=== PATIENT | female | born 1990 | race Hispanic/Latino ===

== ENCOUNTER 2017-03-10 18:31 | Inpatient (IN) | payer MEDICAID ==
[~2017-03-10 18:31] MED LIST: IBUP-2070 PO; PREN1TAB80 PO
[2017-03-10] MEDS ORDERED: LACTATED RINGERS 1000ML 1,000 ML IV PRN (20:07)
[2017-03-10] MEDS ORDERED: AMPICILLIN 2GM+NS 100ML 100 ML IV SCH (20:30)
[2017-03-10 21:01] LABS: HEMATOCRIT 35.1 % (36-48); MEAN CORPUSCULAR HEMOGLOBIN 25.7 pg (27.0-33.0); MEAN CORPUSCULAR HGB CONC 33.1 g/dL (32.0-36.0); MEAN CORPUSCULAR VOLUME 77.6 fL (79-99); PLATELET COUNT (AUTO) 241 K/uL (130-400); RED BLOOD CELL COUNT(AUTO) 4.52 MIL/uL (4.00-5.50); RED CELL DISTRIBUTION WIDTH 16.7 % (11.0-15.5)
[2017-03-11] VITALS (7 sets, daily range): BP systolic 109–133; BP diastolic 61–87
[2017-03-11] MEDS: AMPICILLIN 1GM+NS 50ML 50 ML IV SCH ×3 (00:15→08:30)
[2017-03-11 07:01] LABS: APPEARANCE,URINE CLEAR (CLEAR); BILIRUBIN,URINE NEGATIVE (NEGATIVE); COLOR,URINE YELLOW (YELLOW); GLUCOSE, URINE (UA) NEGATIVE (NEGATIVE); KETONES,URINE NEGATIVE (NEGATIVE); LEUKOCYTE ESTERASE ,URINE NEGATIVE (NEGATIVE); NITRATE,URINE NEGATIVE (NEGATIVE); OCCULT BLOOD,URINE NEGATIVE (NEGATIVE); PH,URINE 7.5 (5.0-8.0); PROTEIN,URINE TRACE (NEGATIVE); UROBILINOGEN,URINE 0.2 mg/dL (0.2-1.0)
[2017-03-11] MEDS ORDERED: OXYTOCIN 10 USP UNITS/ML 20 UNIT in LACTATED RINGERS 1000ML 1,000 ML IV SCH (07:30)
[2017-03-11] MEDS ORDERED: LACTATED RINGERS 1000ML 1,000 ML IV ONE (07:32)
[2017-03-11] MEDS ORDERED: OXYTOCIN 10 USP UNITS/ML ONE ×2 (07:33→14:25)
[2017-03-11] MEDS ORDERED: PROMETHAZINE HCL 25 MG/ML 1ML AMPULE IM ONE (09:42)
[2017-03-11] MEDS ORDERED: MEPERIDINE-PF 50 MG/ML SYG ONE (09:43)
[2017-03-11] MEDS: PROMETHAZINE HCL 25 MG/ML 1ML AMPULE IM SCH (09:45)
[2017-03-11] MEDS: MEPERIDINE-PF 50 MG/ML SYG IVP SCH (09:45)
[2017-03-11] MEDS ORDERED: PNV71COM PO (10:40)
[2017-03-11] MEDS ORDERED: LANOLIN 30GM OINTMENT TP PRN (11:15)
[2017-03-11] MEDS ORDERED: ACETAMINOPHEN 325 MG TAB PO PRN (11:15)
[2017-03-11] MEDS ORDERED: WITCH HAZEL 1 PAD TP PRN (11:15)
[2017-03-11] MEDS ORDERED: DIPH,PERTUSS(ACELL),TET VAC/PF 0.5 ML VIAL IM PRN (11:15)
[2017-03-11] MEDS ORDERED: BENZOCAINE/LANOLIN/ALOE VERA 60 ML AEROSOL TP PRN (11:15)
[2017-03-11] MEDS: IBUPROFEN 600 MG TABLET PO PRN ×2 (11:17→18:51)
[2017-03-11] MEDS: ACETAMINOPHEN-CODEINE 300/30MG TAB PO PRN (16:17)
[2017-03-11] MEDS: FLU VACC QS2017-18 36MOS UP/PF 60 MCG/0.5 ML ML IM SCH (18:52)
[2017-03-11] MEDS: DOCUSATE SODIUM 100 MG CAP PO SCH (20:48)
[2017-03-12 03:16] VITALS: BP 121/73
[2017-03-12 05:47] LABS: HEMATOCRIT 32.6 % (36-48); MEAN CORPUSCULAR HEMOGLOBIN 26.5 pg (27.0-33.0); MEAN CORPUSCULAR HGB CONC 33.6 g/dL (32.0-36.0); PLATELET COUNT (AUTO) 208 K/uL (130-400); RED BLOOD CELL COUNT(AUTO) 4.12 MIL/uL (4.00-5.50); RED CELL DISTRIBUTION WIDTH 16.6 % (11.0-15.5); WHITE BLOOD COUNT (AUTO) 11.9 K/uL (4.8-10.8)
[2017-03-12] MEDS: IBUPROFEN 600 MG TABLET PO PRN ×3 (05:51→17:43)
[2017-03-12 07:23] LABS: HEPATITIS Bs ANTIGEN SCREEN P Negative (Negative)
[2017-03-12 07:30] VITALS: BP 124/74
[2017-03-12] MEDS: DOCUSATE SODIUM 100 MG CAP PO SCH ×2 (09:27→20:40)
[2017-03-12] MEDS: PROMETHAZINE HCL 25 MG/ML 1ML AMPULE IM SCH (09:45)
[2017-03-12] MEDS: MEPERIDINE-PF 50 MG/ML SYG IVP SCH (09:45)
[2017-03-12 12:21] VITALS: BP 136/83
[2017-03-12 15:25] VITALS: BP 136/87
[2017-03-12] MEDS: FLU VACC QS2017-18 36MOS UP/PF 60 MCG/0.5 ML ML IM SCH (18:30)
[2017-03-12 19:36] VITALS: BP 117/74
[2017-03-12] MEDS: ACETAMINOPHEN-CODEINE 300/30MG TAB PO PRN (20:40)
[2017-03-12 23:30] VITALS: BP 126/82
[2017-03-13 03:42] VITALS: BP 115/73
[2017-03-13] MEDS: IBUPROFEN 600 MG TABLET PO PRN ×3 (06:00→12:24)
[2017-03-13 07:34] VITALS: BP 139/94
[2017-03-13] MEDS: DOCUSATE SODIUM 100 MG CAP PO SCH (09:05)
[2017-03-13] MEDS: ACETAMINOPHEN-CODEINE 300/30MG TAB PO PRN (09:07)
[2017-03-13] MEDS: MEPERIDINE-PF 50 MG/ML SYG IVP SCH (09:45)
[2017-03-13] MEDS: PROMETHAZINE HCL 25 MG/ML 1ML AMPULE IM SCH (09:45)
[2017-03-13 11:18] VITALS: BP 137/94
== END 2017-03-13 13:25 | disposition home or self-care (01) | DRG 560 ==
LOC: LDH 18:31 → WSH 03-11 10:20
PROVIDERS: ADMIT Obstetrics & Gynecology; ATTEND Obstetrics & Gynecology
PROC: 10E0XZZ Delivery of Products of Conception, External Approach (ICD-10-PCS; principal; 2017-03-10)
PROC: 3E0234Z Introduction of Serum, Toxoid and Vaccine into Muscle, Percutaneous Approach (ICD-10-PCS; 2017-03-10)
DX: O99.824 Streptococcus B carrier state complicating childbirth (principal); Z23 Encounter for immunization; Z37.0 Single live birth; Z3A.38 38 weeks gestation of pregnancy
CPT/HCPCS: 36415; 81003; 82120; 85027; 86592; 86850; 86900; 86901; 87340; 90715; G0378; J0290; J2175; J2550; J2590; J7120; Q2038

== ENCOUNTER → 2017-05-10 | Outpatient (CLI) | payer MEDICAID ==
[~2017-05-10] VITALS: Ht 163.8 cm; Wt 97.5 kg
[~2017-05-10] MED LIST changes: -IBUP-2070 PO; +PNV71COM PO; -PREN1TAB80 PO
[2017-05-10 12:19] LABS: BASOPHILS % (AUTO) 0.3 % (0.0-5.0); HEMATOCRIT 41.1 % (36-48); LYMPHOCYTES % (AUTO) 25.7 % (21.0-51.0); MEAN CORPUSCULAR HEMOGLOBIN 26.1 pg (27.0-33.0); MEAN CORPUSCULAR HGB CONC 33.3 g/dL (32.0-36.0); MEAN CORPUSCULAR VOLUME 78.3 fL (79-99); MONOCYTES % (AUTO) 5.3 % (3.0-13.0); NEUTROPHILS % (AUTO) 66.7 % (40.0-77.0); PLATELET COUNT (AUTO) 289 K/uL (130-400); RED BLOOD CELL COUNT(AUTO) 5.25 MIL/uL (4.00-5.50); RED CELL DISTRIBUTION WIDTH 15.4 % (11.0-15.5); WHITE BLOOD COUNT (AUTO) 9.8 K/uL (4.8-10.8)
[2017-05-10 12:36] VITALS: BP 118/68
== END | disposition home or self-care (01) ==
LOC: DAH 10:00 → EDSTATUS 11:45
PROVIDERS: ATTEND Obstetrics & Gynecology
DX: Z30.2 Encounter for sterilization (principal)
CPT/HCPCS: 36415; 84703; 85025; 86850; 86900; 86901